=== PATIENT | male | born 1990 | race Caucasian/White ===

== ENCOUNTER 2017-05-23 14:12 | Observation (INO) | payer SELFPAY ==
[2017-05-23] MEDS ORDERED: FAMOTIDINE 20 MG/50 ML IVPB 20 MG/50 ML MG IVPB ONE (14:33)
[2017-05-23] MEDS ORDERED: ONDANSETRON 4 MG/2 ML VIAL ONE (14:33)
[2017-05-23] MEDS ORDERED: ONDANSETRON 4 MG/2 ML VIAL IVPUSH ONE (14:51)
[2017-05-23] MEDS ORDERED: morphine SULFATE 4 MG/ML VIAL ONE ×2 (14:51→15:22)
[2017-05-23] MEDS ORDERED: morphine CARPU-JECT 2 MG/1 ML DISP.SYRIN IVPUSH ONE ×2 (14:51→15:18)
--- NOTE | 2017-05-23 14:59 | PDOC ---
History of Present Illness - General Chief Complaint: Pain Stated Complaint: ABD PAIN Time Seen by Provider: 05/23/17 14:27 History Source: Patient Exam Limitations: No Limitations - History of Present Illness Initial Comments: This is a 27 YOM with h/o scoliosis who presents with epigastric pain, nausea, vomiting, and dark brown diarrhea. His symptoms began with nausea, vomiting, and diarrhea last night. 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 He had 5 episodes of vomiting today and during one of these episodes the pain acutely increased to 10/10 with twisting character. The pain is non-radiating and he denies back pain. He denies any fever, chills, chest pain, testicular pain or swelling, dysuria, or other symptoms. He drinks occasional alcohol but has not drank more than usual lately. Past History - Past Medical History Allergies/Adverse Reactions: Allergies Allergy/AdvReac Type Severity Reaction Status Date / Time choi flavor Allergy Swelling Verified 05/23/17 14:15 kiwi Allergy Swelling Verified 05/23/17 14:15 Home Medications: Ambulatory Orders NK [No Known Home Medication] 05/23/17 COPD: No Other medical history: SCOLIOSIS - Suicide/Smoking/Psychosocial Hx Smoking History: Never smoked Hx Alcohol Use: Yes (SOCIAL) Drug/Substance Use Hx: No Substance Use Type: None Review of Systems - Review of Systems Able to Perform ROS?: Yes Constitutional: No: Chills, Fever, Unexplained wgt Loss HEENTM: No: Nose Congestion, Throat Pain Respiratory: No: Cough, Shortness of Breath Cardiac (ROS): No: Chest Pain, Palpitations ABD/GI: Yes: Diarrhea, Nausea, Vomiting, Other (epigastric pain). No: Constipated : No: Burning, Dysuria Musculoskeletal: No: Back Pain, Neck Pain Integumentary: No: Bruising, Rash Neurological: No: Headache, Numbness, Tingling, Weakness, Dizziness Endocrine: No: Unexplained Weight Gain, Unexplained Weight Loss *Physical Exam - Vital Signs Last Vital Signs Temp Pulse Resp BP Pulse Ox 97.5 F L 94 H 20 129/73 97 05/23/17 14:13 05/23/17 14:13 05/23/17 14:13 05/23/17 14:13 05/23/17 14:13 - Physical Exam General Appearance: Yes: Nourished, Appropriately Dressed, Moderate Distress, Other (well-appearing but very uncomfortable adult male writhing in bed and wincing in pain, otherwise nontoxic appearing) HEENT: positive: EOMI, BOBBY, Normal ENT Inspection, Normal Voice, Hearing Grossly Normal. negative: Scleral Icterus (R), Scleral Icterus (L), Nasal Congestion Neck: positive: Trachea midline, Supple. negative: Tender, Rigid Respiratory/Chest: positive: Lungs Clear, Normal Breath Sounds. negative: Respiratory Distress, Crackles, Rhonchi, Stridor, Wheezing Cardiovascular: positive: Regular Rhythm, Regular Rate. negative: Murmur Gastrointestinal/Abdominal: positive: Normal Bowel Sounds, Tender (marked epigastric ttp, moderate suprapubic ttp, mild ttp of the remaining abdomen diffusely, +rebound tenderness, no additional peritoneal signs), Soft. negative : Organomegaly, Pulsatile Mass, Guarding Musculoskeletal: positive: Normal Inspection. negative: Decreased Range of Motion, Vertebral Tenderness Extremity: positive: Normal Capillary Refill, Normal Inspection, Normal Range of Motion. negative: Tender, Cyanosis Integumentary: positive: Normal Color, Dry, Warm. 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 intact (grossly), Fully Oriented, Alert, Normal Mood/Affect, Normal Response, Motor Strength 5/5 ED Treatment Course - LABORATORY CBC & Chemistry Diagram: 05/24/17 08:00 05/24/17 08:00 - RADIOLOGY Radiology Studies Ordered: Category Date Time Status ABDOMEN & PELVIS CT WITH CONTR [CT] Stat CT Scan 05/23/17 14:[address] WITH CONTRAST [CT] Stat CT Scan 05/23/17 14:44 Ordered ABDOMEN FLAT & UPRIGHT [RAD] Stat Radiology 05/23/17 14:49 Ordered CHEST PA & LAT [RAD] Stat Radiology 05/23/17 14:49 Ordered Medical Decision Making - Medical Decision Making 27 YOM presents with n/v/d since last night with mild abdominal pain acutely worsened during forceful vomiting. On exam HR is 94 otherwise VS wnl, appears in moderate distress Marked epigastric ttp, moderate suprapubic ttp, diffuse mild ttp remainder of abdomen. Patient does have rebound tenderness but abdomen is not rigid, tight, or distended, no CVA ttp, negative heel tap. DDX IBNLT Boerhaave syndrome, PUD wwo perforation, gastroenteritis, pancreatitis , cholecystitis, ACS, DKA. Ordered is CBCD, CMP, type & screen, coags, lipase, lactate, CXR, abdomen XR, CT chest/ab/pel with IV contrast. SXS control with Zofran, Pepcid, Morphine 2mg, IVF. 05/23/17 16:12 Spoke with infectious disease technician who stated radiologist recommended PO contrast if ruling out Boerhaave. Patient feeling much better after second 2 mg dose of IV morphine. Oral contrast given to the patient and he is tolerating it well. 05/23/17 17:[address] now; will be given another liter of IVF as his lactate was 2.2. CXR without free air under the diaphragm, no additional cardiopulmonary processes. Will hold on antibiotics until the CT results are back as the patient has not had septic vitals. 05/23/17 18:09 Abdominal x-ray read as dilated loops of bowel, possible SBO. Awaiting results of CT chest abdomen pelvis. 05/23/17 19:[address] concerning for possible ileus versus partial SBO. Will admit to obs and ask surgery to consult. Patient's care signed out to oncoming resident at the end of my shift. *DC/Admit/Observation/Transfer Diagnosis at time of Disposition: Abdominal pain Qualifiers: Abdominal location: epigastric Qualified Code(s): R10.13 - Epigastric pain - Discharge Dispostion Disposition: HOME Condition at time of disposition: Stable - Referrals - Patient Instructions - Post Discharge Activity
[2017-05-23] MEDS ORDERED: SODIUM CHLORIDE 0.9% 1000 ML INFUS.BAG IV ONE ×2 (15:00→17:44)
[2017-05-23] MEDS ORDERED: FAMOTIDINE IV 20 MG/12 ML VIAL IVPB ONE (15:00)
[2017-05-23 15:21] LABS: EOSINOPHIL 0.4 % (0-4.5); MCH 29.1 pg (25.7-33.7); MCHC 34.2 g/dl (32.0-35.9); MEAN PLT VOLUME 10.1 fl (7.5-11.1); NEUTROPHILS 92.1 % (42.8-82.8); PLATELET COUNT 180 K/MM3 (134-434); RDW 13.5 % (11.9-15.9); WHITE BLOOD COUNT 13.8 K/mm3 (4.0-10.0)
[2017-05-23 15:52] LABS: ALBUMIN 4.2 g/dl (3.4-5.0); ANION GAP 12 (8-16); CALCIUM 8.7 mg/dL (8.5-10.1); CO2 24 mmol/L (21-32); CREATININE 0.9 mg/dL (0.7-1.3); GLUCOSE,RANDOM 104 mg/dL (74-106); SGOT/AST 15 U/L (15-37); SGPT/ALT 33 U/L (12-78)
[2017-05-23 15:56] LABS: ALK PHOS 66 U/L (45-117); BILIRUBIN,TOTAL 0.7 mg/dL (0.2-1.0); CPK 125 IU/L (39-308); TOT PROT 7.5 g/dl (6.4-8.2); TROPONIN I < 0.02 ng/ml (0.00-0.05)
[2017-05-23 16:42] LABS: INR 1.02 (0.82-1.09); PROTHROMBIN TIME (PATIENT) 11.5 SEC (9.98-11.88)
[2017-05-23 17:50] LABS: URINE APPEARANCE CLEAR; URINE BILIRUBIN NEGATIVE (NEGATIVE); URINE BLOOD NEGATIVE (NEGATIVE); URINE COLOR YELLOW; URINE GLUCOSE (UA) NEGATIVE (NEGATIVE); URINE KETONE TRACE (NEGATIVE); URINE LEUK ESTERASE NEGATIVE (NEGATIVE); URINE NITRITE NEGATIVE (NEGATIVE); URINE PROTEIN NEGATIVE (NEGATIVE)
--- NOTE | 2017-05-23 18:22 | PDOC ---
Attending Attestation - Resident Resident Name: Monica Robison - ED Attending Attestation I have performed the following: I have examined & evaluated the patient, The case was reviewed & discussed with the resident, I agree w/resident's findings & plan, Exceptions are as noted - HPI HPI: 05/23/17 18:13 27 M with h/o scoliosis presents to ER with one day of severe epigastric pain. Pt reports having N+V+D for the past 2 days. However, today while he was vomiting, he began to have severe epigastric pain. The pain is non-radiating. Pt denies any chest pain or shortness of breath. He denies hematemesis. Denies abdominal distention. No surgical history. - Physicial Exam PE: 05/23/17 18:22 "GENERAL: Awake, alert, and fully oriented, in no acute distress HEAD: No signs of trauma EYES: PERRLA, EOMI, sclera anicteric, conjunctiva clear ENT: Auricles normal inspection, hearing grossly normal, nares patent, oropharynx clear without exudates. Moist mucosa NECK: Nontender, no stepoffs, Normal ROM, supple, no lymphadenopathy, JVD, or masses LUNGS: Breath sounds equal, clear to auscultation bilaterally. No wheezes, and no crackles HEART: Regular rate and rhythm, normal S1 and S2, no murmurs, rubs or gallops ABDOMEN: + epigastric TTP, no lower quadrant tenderness, negative garza's EXTREMITIES: Normal range of motion, no edema. No clubbing or cyanosis. No cords, erythema, or tenderness NEUROLOGICAL: Cranial nerves II through XII intact. 5/5 strength and sensation in all extremities, Normal speech, normal gait SKIN: Warm, Dry, normal turgor, no rashes or lesions noted. " - Medical Decision Making 05/23/17 18:22 27 M with sudden onset epigastric pain in the context of nausea and vomiting. Concerning for possible Boerhaave's syndrome. Also consider pancreatitis. Pt may also have SBO though less likely given lack of surgical history. - Labs, lipase - CXR, upright abd XR - CT abd/pelvis - IVF, zofran, analgesia 05/23/17 19:32 CBC,CMP WBC 13.8 K/mm3 (4.0-10.0) H 05/23/17 14:59 RBC 5.91 M/mm3 (4.00-5.60) H 05/23/17 14:59 Hgb 17.2 GM/dL (11.7-16.9) H 05/23/17 14:59 Hct 50.2 % (35.4-49) H 05/23/17 14:59 MCV 85.0 fl (80-96) 05/23/17 14:59 MCH 29.1 pg (25.7-33.7) 05/23/17 14:59 MCHC 34.2 g/dl (32.0-35.9) 05/23/17 14:59 RDW 13.5 % (11.9-15.9) 05/23/17 14:59 Plt Count 180 K/MM3 (134-434) 05/23/17 14:59 MPV 10.1 fl (7.5-11.1) 05/23/17 14:59 Neutrophils % 92.1 % (42.8-82.8) H 05/23/17 14:59 Lymphocytes % 3.8 % (8-40) L 05/23/17 14:59 Monocytes % 3.7 % (3.8-10.2) L 05/23/17 14:59 Eosinophils % 0.4 % (0-4.5) 05/23/17 14:59 Basophils % 0.0 % (0-2.0) 05/23/17 14:59 Sodium 137 mmol/L (136-145) 05/23/17 15:00 Potassium 3.9 mmol/L (3.5-5.1) 05/23/17 15:00 Chloride 101 mmol/L (98-107) 05/23/17 15:00 Carbon Dioxide 24 mmol/L (21-32) 05/23/17 15:00 Anion Gap 12 (8-16) 05/23/17 15:00 BUN 15 mg/dL (7-18) 05/23/17 15:00 Creatinine 0.9 mg/dL (0.7-1.3) 05/23/17 15:00 Creat Clearance w eGFR > 60 (>60) 05/23/17 15:00 Random Glucose 104 mg/dL (74-106) 05/23/17 15:00 Lactic Acid 2.2 mmol/L (0.4-2.0) H* 05/23/17 15:00 Calcium 8.7 mg/dL (8.5-10.1) 05/23/17 15:00 Total Bilirubin 0.7 mg/dL (0.2-1.0) 05/23/17 15:00 AST 15 U/L (15-37) 05/23/17 15:00 ALT 33 U/L (12-78) 05/23/17 15:00 Alkaline Phosphatase 66 U/L (45-117) 05/23/17 15:00 Creatine Kinase 125 IU/L (39-308) 05/23/17 15:00 Troponin I < 0.02 ng/ml (0.00-0.05) 05/23/17 15:00 Total Protein 7.5 g/dl (6.4-8.2) 05/23/17 15:00 Albumin 4.2 g/dl (3.4-5.0) 05/23/17 15:00 Lipase 140 U/L (73-393) 05/23/17 15:00 CTAP notable for dilated loops of bowel, concerning for possible SBO vs ileus. Pt to be admitted to hospital. Will consult surgery for evaluation.
--- NOTE | 2017-05-23 19:35 | PDOC ---
*Physical Exam - Vital Signs Last Vital Signs Temp Pulse Resp BP Pulse Ox 98.2 F 90 18 126/69 99 05/23/17 17:31 05/23/17 17:31 05/23/17 17:31 05/23/17 17:31 05/23/17 17:31 - Physical Exam General Appearance: Yes: Nourished. No: Apparent Distress HEENT: positive: Normal ENT Inspection Respiratory/Chest: positive: Lungs Clear, Normal Breath Sounds Cardiovascular: positive: Regular Rhythm, Regular Rate, S1, S2 Gastrointestinal/Abdominal: positive: Normal Bowel Sounds, Soft, Tenderness. negative: Distended, Guarding Extremity: negative: Pedal Edema Neurologic: positive: Fully Oriented, Alert, Normal Mood/Affect ED Treatment Course - LABORATORY CBC & Chemistry Diagram: 05/23/17 14:59 05/23/17 15:00 - ADDITIONAL ORDERS Additional order review: Laboratory Results 05/23/17 05/23/17 05/23/17 17:31 15:27 15:19 PT with INR 11.50 INR 1.02 Sodium Potassium Chloride Carbon Dioxide Anion Gap BUN Creatinine Creat Clearance w eGFR Random Glucose Lactic Acid Calcium Total Bilirubin AST ALT Alkaline Phosphatase Creatine Kinase Troponin I Total Protein Albumin Lipase Urine Color Yellow Urine Appearance Clear Urine pH 7.0 Ur Specific [place] 1.024 Urine Protein Negative Urine Glucose (UA) Negative Urine Ketones Trace H Urine Blood Negative Urine Nitrite Negative Urine Bilirubin Negative Urine Urobilinogen 2.0 Blood Type B POSITIVE Antibody Screen Negative 05/23/17 05/23/17 05/23/17 15:00 15:00 15:00 PT with INR INR Sodium 137 Potassium 3.9 Chloride 101 Carbon Dioxide 24 Anion Gap 12 BUN 15 Creatinine 0.9 Creat Clearance w eGFR > 60 Random Glucose 104 Lactic Acid 2.2 H* Calcium 8.7 Total Bilirubin 0.7 AST 15 ALT 33 Alkaline Phosphatase 66 Creatine Kinase 125 Troponin I < 0.02 Total Protein 7.5 Albumin 4.2 Lipase Cancelled 140 Urine Color Urine Appearance Urine pH Ur Specific [place] Urine Protein Urine Glucose (UA) Urine Ketones Urine Blood Urine Nitrite Urine Bilirubin Urine Urobilinogen Blood Type Antibody Screen 05/23/17 14:59 PT with INR INR Sodium Cancelled Potassium Cancelled Chloride Cancelled Carbon Dioxide Cancelled Anion Gap Cancelled BUN Cancelled Creatinine Cancelled Creat Clearance w eGFR Cancelled Random Glucose Cancelled Lactic Acid Calcium Cancelled Total Bilirubin Cancelled AST Cancelled ALT Cancelled Alkaline Phosphatase Cancelled Creatine Kinase Troponin I Total Protein Cancelled Albumin Cancelled Lipase Urine Color Urine Appearance Urine pH Ur Specific [place] Urine Protein Urine Glucose (UA) Urine Ketones Urine Blood Urine Nitrite Urine Bilirubin Urine Urobilinogen Blood Type Antibody Screen 05/23/17 14:59 RBC 5.91 H MCV 85.0 MCHC 34.2 RDW 13.5 MPV 10.1 Neutrophils % 92.1 H Lymphocytes % 3.8 L Monocytes % 3.7 L Eosinophils % 0.4 Basophils % 0.0 - Medications Given in the ED: ED Medications Discontinued Medications Generic Name Dose Route Start Last Admin Trade Name Freq PRN Reason Stop Dose Admin Diphenhydramine HCl 25 mg 05/23/17 18:08 05/23/17 18:11 Benadryl Injection - IVPUSH 05/23/17 18:09 25 mg ONCE ONE Administration Famotidine 20 mg in 12 mls @ 144 mls/hr 05/23/17 15:00 05/23/17 15:02 Pepcid 20 Mg/12 Ml Push IVPB 05/23/17 15:04 144 mls/hr ONCE ONE Administration Morphine Sulfate 2 mg 05/23/17 14:51 05/23/17 14:59 Morphine Injection - IVPUSH 05/23/17 14:52 2 mg ONCE ONE Administration Morphine Sulfate 2 mg 05/23/17 15:18 05/23/17 15:28 Morphine Injection - IVPUSH 05/23/17 15:19 2 mg ONCE ONE Administration Ondansetron HCl 4 mg 05/23/17 14:51 05/23/17 14:59 Zofran Injection IVPUSH 05/23/17 14:52 4 mg ONCE ONE Administration Sodium Chloride 1,000 ml 05/23/17 15:00 05/23/17 15:02 Normal Saline - IV 05/23/17 15:01 1,000 ml ONCE ONE Administration Sodium Chloride 1,000 ml 05/23/17 17:44 05/23/17 17:30 Normal Saline - IV 05/23/17 17:45 1,000 ml ONCE ONE Administration Medical Decision Making - Medical Decision Making 05/23/17 19:43 CT A/P results revealed several mildly dilated small bowel loops that could represent ileus vs partial SBO vs enteritis. Results communicated with patient and who is at bedside. Patient feels tired, but pain is currently well controlled. No further episodes of n/v/diarrhea. Will contact Hospitalists for Obs admission. 05/23/17 20:43 Case d/w Dr. Gibbs. Will continue IVF and admit under obs. *DC/Admit/Observation/Transfer Diagnosis at time of Disposition: Abdominal pain - Discharge Dispostion Condition at time of disposition: Stable Admit: Yes - Referrals - Patient Instructions - Post Discharge Activity
[2017-05-23 20:29] LABS: URINE LEUK ESTERASE Negative (NEGATIVE)
[2017-05-23] MEDS ORDERED: SODIUM CHLORIDE 1,000 ML IV SCH ×2 (20:45→21:45)
[2017-05-23] MEDS ORDERED: FAMOTIDINE IV 20 MG/12 ML VIAL IVPUSH SCH (22:00)
--- NOTE | 2017-05-23 22:08 | HP ---
<Jair Leblanc - Last Filed: 05/23/17 21:45> CHIEF COMPLAINT: abdominal pain HISTORY OF PRESENT ILLNESS: Patient is a 27 yo with no significant PMHx presented with nausea/vomiting and non-bloody watery diarrhea that started last night. This morning he developed worsening 10/10, cramping, periumbilical abdominal pain and thats when he decided to visit the ER. He had 3 bowel movements since last night and vomited 5 times. Patient states his girlfriend had similar 2 days ago. Last night, before bed he ate pasta and chicken that was cooked at home. Patient denies SOB, headache, chest pain, recent travel, hematemesis, abdominal distension and urinary symptoms. ER course was notable for: (1) 13.8 WBC, 2.2 lactic acid, 99.6 temp (2) CT A/P results revealed several mildly dilated small bowel loops that could represent ileus vs partial SBO vs enteritis. Recent Travel: n/a PAST MEDICAL HISTORY: scoliosis PAST SURGICAL HISTORY: n/a Social History: Smoking: denies Alcohol: occasional Drugs: denies Family History: Allergies choi flavor Allergy (Verified 05/23/17 14:15) Swelling kiwi Allergy (Verified 05/23/17 14:15) Swelling HOME MEDICATIONS: Home Medications Medication Instructions Recorded NK [No Known Home Medication] 05/23/17 REVIEW OF SYSTEMS CONSTITUTIONAL: Absent: fevers, chills, diaphoresis, generalized weakness, malaise, loss of appetite, weight change HEENT: Absent: rhinorrhea, nasal congestion, throat pain, throat swelling, difficulty swallowing, mouth swelling, ear pain, eye pain, visual changes CARDIOVASCULAR: Absent: chest pain, syncope, palpitations, irregular heart rate, lightheadedness , peripheral edema RESPIRATORY: Absent: cough, shortness of breath, dyspnea with exertion, orthopnea, wheezing, stridor, hemoptysis GASTROINTESTINAL: abdominal pain, nausea, vomiting, nausea, diarrhea Absent: constipation, melena, hematochezia GENITOURINARY: Absent: dysuria, frequency, urgency, hesitancy, hematuria, flank pain, genital pain MUSCULOSKELETAL: Absent: myalgia, arthralgia, joint swelling, back pain, neck pain SKIN: Absent: rash, itching, pallor HEMATOLOGIC/IMMUNOLOGIC: Absent: easy bleeding, easy bruising, lymphadenopathy, frequent infections ENDOCRINE: Absent: unexplained weight gain, unexplained weight loss, heat intolerance, cold intolerance NEUROLOGIC: Absent: headache, focal weakness or paresthesias, dizziness, unsteady gait, seizure, mental status changes, bladder or bowel incontinence PSYCHIATRIC: Absent: anxiety, depression, suicidal or homicidal ideation, hallucinations. PHYSICAL EXAMINATION Vital Signs - 24 hr 05/23/17 05/23/17 05/23/17 14:13 17:31 20:28 Temperature 97.5 F L 98.2 F 99.6 F Pulse Rate 94 H Pulse Rate [ 90 89 Left Radial] Respiratory 20 18 18 Rate Blood Pressure 129/73 Blood Pressure 126/69 112/61 [Right Arm] O2 Sat by Pulse 97 99 99 Oximetry (%) GENERAL: Awake, alert, and fully oriented, in no acute distress. HEAD: Normal with no signs of trauma. EYES: extraocular movements intact, sclera anicteric, conjunctiva clear. No lid lag. EARS, NOSE, THROAT: oropharynx clear without exudates. Moist mucous membranes. NECK: supple without lymphadenopathy, JVD, or masses. LUNGS: Breath sounds equal, clear to auscultation bilaterally. No wheezes, and no crackles. No accessory muscle use. HEART: Regular rate and rhythm, normal S1 and S2 without murmur, rub or gallop. ABDOMEN: +BS, normoactive BS, no tenderness, no rebound, soft, nondistended UPPER EXTREMITIES: 2+ pulses, warm, well-perfused. No cyanosis. No clubbing. No peripheral edema. LOWER EXTREMITIES: 2+ pulses, warm, well-perfused. No calf tenderness. No peripheral edema. NEUROLOGICAL: Normal speech. Normal gait. PSYCHIATRIC: Cooperative. Good eye contact. Appropriate mood and affect. SKIN: Warm, dry, normal turgor, no rashes or lesions noted, normal capillary refill. Laboratory Results - last 24 hr 05/23/17 05/23/17 05/23/17 14:59 14:59 15:00 WBC 13.8 H RBC 5.91 H Hgb 17.2 H Hct 50.2 H MCV 85.0 MCH 29.1 MCHC 34.2 RDW 13.5 Plt Count 180 MPV 10.1 Neutrophils % 92.1 H Lymphocytes % 3.8 L Monocytes % 3.7 L Eosinophils % 0.4 Basophils % 0.0 PT with INR INR Sodium Cancelled 137 Potassium Cancelled 3.9 Chloride Cancelled 101 Carbon Dioxide Cancelled 24 Anion Gap Cancelled 12 BUN Cancelled 15 Creatinine Cancelled 0.9 Creat Clearance w eGFR Cancelled > 60 Random Glucose Cancelled 104 Lactic Acid Calcium Cancelled 8.7 Total Bilirubin Cancelled 0.7 AST Cancelled 15 ALT Cancelled 33 Alkaline Phosphatase Cancelled 66 Creatine Kinase 125 Troponin I < 0.02 Total Protein Cancelled 7.5 Albumin Cancelled 4.2 Lipase 140 Urine Color Urine Appearance Urine pH Ur Specific [place] Urine Protein Urine Glucose (UA) Urine Ketones Urine Blood Urine Nitrite Urine Bilirubin Urine Urobilinogen Ur Leukocyte Esterase Blood Type Antibody Screen 05/23/17 05/23/17 05/23/17 15:00 15:00 15:19 WBC RBC Hgb Hct MCV MCH MCHC RDW Plt Count MPV Neutrophils % Lymphocytes % Monocytes % Eosinophils % Basophils % PT with INR INR Sodium Potassium Chloride Carbon Dioxide Anion Gap BUN Creatinine Creat Clearance w eGFR Random Glucose Lactic Acid 2.2 H* Calcium Total Bilirubin AST ALT Alkaline Phosphatase Creatine Kinase Troponin I Total Protein Albumin Lipase Cancelled Urine Color Urine Appearance Urine pH Ur Specific [place] Urine Protein Urine Glucose (UA) Urine Ketones Urine Blood Urine Nitrite Urine Bilirubin Urine Urobilinogen Ur Leukocyte Esterase Blood Type B POSITIVE Antibody Screen Negative 05/23/17 05/23/17 05/23/17 15:27 17:31 19:30 WBC RBC Hgb Hct MCV MCH MCHC RDW Plt Count MPV Neutrophils % Lymphocytes % Monocytes % Eosinophils % Basophils % PT with INR 11.50 INR 1.02 Sodium Potassium Chloride Carbon Dioxide Anion Gap BUN Creatinine Creat Clearance w eGFR Random Glucose Lactic Acid 1.3 Calcium Total Bilirubin AST ALT Alkaline Phosphatase Creatine Kinase Troponin I Total Protein Albumin Lipase Urine Color Yellow Urine Appearance Clear Urine pH 7.0 Ur Specific [place] 1.024 Urine Protein Negative Urine Glucose (UA) Negative Urine Ketones Trace H Urine Blood Negative Urine Nitrite Negative Urine Bilirubin Negative Urine Urobilinogen 2.0 Ur Leukocyte Esterase Negative Blood Type Antibody Screen ASSESSMENT/PLAN: Patient is a 27 yo with no significant PMHx presented with nausea/vomiting, non- bloody watery diarrhea and abdominal pain. #Gastroenteritis -Viral vs. Bacterial -Girlfriend with similar symptoms -IV fluids -Pain control with Tylenol PRN -No ABx, if symptoms worsens or change in labs, start ABx. -CT A/P results revealed several mildly dilated small bowel loops that could represent ileus vs partial SBO vs enteritis. -Zofran PRN for nausea -IV Fluids Normal Saline -Obs for monitoring #FEN -IV fluids NS -WNL -Clear liquid diets PPX: -SCD's Dispo: OBS Visit type - Emergency Visit Emergency Visit: Yes Care time: The patient presented to the Emergency Department on the above date and was hospitalized for further evaluation of their emergent condition. - New Patient This patient is new to me today: Yes Date on this admission: 05/23/17 - Critical Care Critical Care patient: No <Haleigh Gibbs - Last Filed: 05/23/17 22:36> Patient was seen and examined Agree with plan above. 27 year old male with epigastric abdominal pain , nausea , vomiting and diarrhea x 1 day . Subjective fever Girlfriend was having similar symptoms day before Vital Signs Temperature 99.6 F 05/23/17 20:28 Pulse Rate 89 05/23/17 20:28 Respiratory Rate 18 05/23/17 20:28 Blood Pressure 112/61 05/23/17 20:28 O2 Sat by Pulse Oximetry (%) 99 05/23/17 20:28 ABDOMEN: Soft, nontender, not distended, normoactive bowel sounds, no guarding, no rebound, no masses. No hepatomegaly or splenomegaly. MUSCULOSKELETAL: Normal range of motion at all joints. No bony deformities or tenderness. No CVA tenderness. UPPER EXTREMITIES: 2+ pulses, warm, well-perfused. No cyanosis. No clubbing. No peripheral edema. CBC, BMP 05/23/17 14:59 05/23/17 15:00 CT scan reviewed ,no acute findings. Reading reports possible SBO vs enteritis/ colitis A/P Acute Gastroenteritis- likely viral based on clinical presentation ( sick contacts) . No history of abdominal surgery or risk of adhesions - IVF - PO trial of clear liquids in AM - zofran for nausea - no need for antibiotics , surgical or GI evaluation at this time ( based on my medical judgment) , if condition changes please re evaluate Based on symptoms of nausea/vomiting and inability to maintain appropriate hydration this patient meets medical necessity for initial first midnight of hospitalization. At this time it is unclear if length of his hospitalization will span across second midnight as we do anticipate improvement in his symptoms after initial management . Observation for now .
[2017-05-23] MEDS ORDERED: ONDANSETRON 4 MG/2 ML VIAL IVPUSH PRN (22:09)
[2017-05-23] MEDS ORDERED: ACETAMINOPHEN 325 MG TABLET (FP) PO PRN (22:09)
[2017-05-23] MEDS ORDERED: ONDANSETRON 4 MG TABLET PO ONE (22:27)
[2017-05-24 01:07] VITALS: BMI 29.6
[2017-05-24 08:52] LABS: BASOPHIL 0.2 % (0-2.0); EOSINOPHIL 1.2 % (0-4.5); MCH 28.6 pg (25.7-33.7); MCHC 33.7 g/dl (32.0-35.9); MEAN CELL VOLUME 84.9 fl (80-96); MEAN PLT VOLUME 9.5 fl (7.5-11.1); NEUTROPHILS 76.3 % (42.8-82.8); PLATELET COUNT 160 K/MM3 (134-434); RDW 13.5 % (11.9-15.9)
[2017-05-24 09:28] LABS: ANION GAP 9 (8-16); CO2 26 mmol/L (21-32); CREATININE 0.8 mg/dL (0.7-1.3); GLUCOSE,RANDOM 85 mg/dL (74-106)
--- NOTE | 2017-05-24 11:36 | DS ---
Physical Exam: SUBJECTIVE: Patient seen and examined, denies abdominal pain, tolerating clears , no nausea. Wants to go home OBJECTIVE: Vital Signs Period Temp Pulse Resp BP Sys/[place] Pulse Ox Last 24 Hr 97.5 F-99.6 F 87-94 18-20 112-129/61-73 97-99 PE Neuro: alert, awake, cn 2-12intact Pulm: CTAB CV: s1 s2 rrr no mrg Abd: s nt nd + bs Ext: warm, no le edema Laboratory Results - last 24 hr 05/23/17 05/23/17 05/23/17 14:59 14:59 15:00 WBC 13.8 H RBC 5.91 H Hgb 17.2 H Hct 50.2 H MCV 85.0 MCH 29.1 MCHC 34.2 RDW 13.5 Plt Count 180 MPV 10.1 Neutrophils % 92.1 H Lymphocytes % 3.8 L Monocytes % 3.7 L Eosinophils % 0.4 Basophils % 0.0 PT with INR INR Sodium Cancelled 137 Potassium Cancelled 3.9 Chloride Cancelled 101 Carbon Dioxide Cancelled 24 Anion Gap Cancelled 12 BUN Cancelled 15 Creatinine Cancelled 0.9 Creat Clearance w eGFR Cancelled > 60 Random Glucose Cancelled 104 Lactic Acid Calcium Cancelled 8.7 Total Bilirubin Cancelled 0.7 AST Cancelled 15 ALT Cancelled 33 Alkaline Phosphatase Cancelled 66 Creatine Kinase 125 Troponin I < 0.02 Total Protein Cancelled 7.5 Albumin Cancelled 4.2 Lipase 140 Urine Color Urine Appearance Urine pH Ur Specific [place] Urine Protein Urine Glucose (UA) Urine Ketones Urine Blood Urine Nitrite Urine Bilirubin Urine Urobilinogen Ur Leukocyte Esterase Blood Type Antibody Screen 05/23/17 05/23/17 05/23/17 15:00 15:00 15:19 WBC RBC Hgb Hct MCV MCH MCHC RDW Plt Count MPV Neutrophils % Lymphocytes % Monocytes % Eosinophils % Basophils % PT with INR INR Sodium Potassium Chloride Carbon Dioxide Anion Gap BUN Creatinine Creat Clearance w eGFR Random Glucose Lactic Acid 2.2 H* Calcium Total Bilirubin AST ALT Alkaline Phosphatase Creatine Kinase Troponin I Total Protein Albumin Lipase Cancelled Urine Color Urine Appearance Urine pH Ur Specific [place] Urine Protein Urine Glucose (UA) Urine Ketones Urine Blood Urine Nitrite Urine Bilirubin Urine Urobilinogen Ur Leukocyte Esterase Blood Type B POSITIVE Antibody Screen Negative 05/23/17 05/23/17 05/23/17 15:27 17:31 19:30 WBC RBC Hgb Hct MCV MCH MCHC RDW Plt Count MPV Neutrophils % Lymphocytes % Monocytes % Eosinophils % Basophils % PT with INR 11.50 INR 1.02 Sodium Potassium Chloride Carbon Dioxide Anion Gap BUN Creatinine Creat Clearance w eGFR Random Glucose Lactic Acid 1.3 Calcium Total Bilirubin AST ALT Alkaline Phosphatase Creatine Kinase Troponin I Total Protein Albumin Lipase Urine Color Yellow Urine Appearance Clear Urine pH 7.0 Ur Specific [place] 1.024 Urine Protein Negative Urine Glucose (UA) Negative Urine Ketones Trace H Urine Blood Negative Urine Nitrite Negative Urine Bilirubin Negative Urine Urobilinogen 2.0 Ur Leukocyte Esterase Negative Blood Type Antibody Screen 05/24/17 05/24/17 08:00 08:00 WBC 7.0 D RBC 5.27 Hgb 15.0 D Hct 44.7 MCV 84.9 MCH 28.6 MCHC 33.7 RDW 13.5 Plt Count 160 MPV 9.5 Neutrophils % 76.3 Lymphocytes % 11.6 D Monocytes % 10.7 H D Eosinophils % 1.2 D Basophils % 0.2 D PT with INR INR Sodium 141 Potassium 3.6 Chloride 106 Carbon Dioxide 26 Anion Gap 9 BUN 6 L D Creatinine 0.8 Creat Clearance w eGFR Random Glucose 85 Lactic Acid Calcium 8.0 L Total Bilirubin AST ALT Alkaline Phosphatase Creatine Kinase Troponin I Total Protein Albumin Lipase Urine Color Urine Appearance Urine pH Ur Specific [place] Urine Protein Urine Glucose (UA) Urine Ketones Urine Blood Urine Nitrite Urine Bilirubin Urine Urobilinogen Ur Leukocyte Esterase Blood Type Antibody Screen HOSPITAL COURSE: Date of Admission:05/23/17 Date of Discharge: 05/24/17 Minutes to complete discharge: 37 Discharge Summary Reason For Visit: ABDOMINAL PAIN Current Active Problems Abdominal pain (Acute) Hospital Course: Initial Hospital Course: 27 year old with no significant PMHx presented with nausea/vomiting and non- bloody watery diarrhea x1 night. The morning of admission he had abdominal pain of 10/10, cramping, periumbilical abdominal pain and decided to visit the ER. He had 3 bowel movements since last night and vomited 5 times. Patient stated his girlfriend had similar 2 days ago. Subsequent Hospital Course/Progress Note/DC summary: Plan: 1. Gastroenteritis - Likely viral - s/p IVF, no abx needed - Symptoms resolved in am, pt tolerating clears, electrolytes stable, no vomiting 2. Lactic acidosis - Resolved w fluids 3. Leukocytosis - Likely reactive - Wnl on discharge Dispo: - Home Condition: Stable - Instructions Diet, Activity, Other Instructions: Please return to the ED for any new, persistent, or worsening symptoms. Follow up with your PCP in 1 week Resume foods that are soft and bland for a few days Continue to hydrate with gatorade and water Disposition: HOME - Home Medications Comprehensive Discharge Medication List: Ambulatory Orders NK [No Known Home Medication] 05/23/17 This patient is new to me today: Yes Date on this admission: 05/25/17 Emergency Visit: Yes ED Registration Date: 05/23/17 Care time: The patient presented to the Emergency Department on the above date and was hospitalized for further evaluation of their emergent condition. Critical Care patient: No - Discharge Referral Referred to [facility] Med P.C.: No
[2017-05-24 12:39] VITALS: BP 130/72; PULSE 98; TEMP 98.6
== END 2017-05-24 12:30 | disposition home or self-care (01) ==
LOC: JER 14:12 → JERBED 20:45 → J5S 23:36
PROVIDERS: ADMIT Internal Medicine; ATTEND Nurse Practitioner Acute Care
PROC: 3E033NZ Introduction of Analgesics, Hypnotics, Sedatives into Peripheral Vein, Percutaneous Approach (ICD-10-PCS; principal; 2017-05-23)
PROC: 3E033GC Introduction of Other Therapeutic Substance into Peripheral Vein, Percutaneous Approach (ICD-10-PCS; 2017-05-23)
PROC: 3E033GC Introduction of Other Therapeutic Substance into Peripheral Vein, Percutaneous Approach (ICD-10-PCS; 2017-05-23)
DX: K52.9 Noninfective gastroenteritis and colitis, unspecified (principal); D72.829 Elevated white blood cell count, unspecified
CPT/HCPCS: 36415; 71020-TC; 71260-TC; 74020-TC; 74177-TC; 80048; 80053; 81003; 82550; 83605; 83690; 84484; 85025; 85610; 86850; 86900; 86901; 87086; 99284-25; G0378